=== PATIENT | female | born 1960 | race Caucasian/White ===

== ENCOUNTER 2017-03-22 12:11 | Day surgery (SDC) | payer OTHER ==
[~2017-03-22] VITALS: Ht 162.6 cm; Wt 64.4 kg
[2017-03-22 13:44] VITALS: Ht 162.6 cm; Wt 64.4 kg
[2017-03-22 14:33] VITALS: BP 119/66; PULSE 79; RESP 11
[2017-03-22] MEDS ORDERED: MIDAZOLAM 1 MG/ML 2 ML INJ ONE ×2 (14:57)
[2017-03-22] MEDS ORDERED: FENTAnyl 50 MCG/ML VIAL ONE (14:57)
[2017-03-22 15:20] VITALS: BP 133/84; PULSE 62; RESP 12
[2017-03-22 15:30] VITALS: BP 124/79; PULSE 66; RESP 12
--- NOTE | 2017-04-18 06:43 | GILP ---
DATE OF PROCEDURE: PROCEDURE PERFORMED: Colonoscopy. SURGEON: Paulina Navarro MD PREOPERATIVE DIAGNOSIS: Screening colonoscopy. POSTOPERATIVE DIAGNOSES: Colonoscopy all the way to the cecum. Internal hemorrhoids. No colon neoplasm was identified. INDICATION: The patient is a 56-year-old female patient who was scheduled for screening colonoscopy. The procedure and possible complications were well explained to the patient. The patient understood and consented to the procedure. DESCRIPTION OF PROCEDURE: The colonoscope was carefully introduced in the rectum, and under direct vision, it was advanced all the way to the cecum. FINDINGS: The patient had internal hemorrhoids. No colon neoplasm was identified. The patient tolerated the procedure very well. There was no complication from the procedure. At the end of procedure she was awake, with stable vital signs and she was discharged to the care of her family. IMPRESSION: Colonoscopy all the way to cecum. Internal hemorrhoids. No colon neoplasm was identified. PLAN: Screening colonoscopy in 10 years. Dictated By: MD JENNA Guillory/stephaniet/bjc /Document#: [id number]
== END 2017-03-22 17:28 | disposition home or self-care (01) ==
LOC: GIL 12:11
PROVIDERS: ATTEND Internal Medicine Gastroenterology
DX: Z12.11 Encounter for screening for malignant neoplasm of colon (principal); K64.8 Other hemorrhoids
CPT/HCPCS: 45378; J2250; J3010

== ENCOUNTER 2017-10-16 20:21 | Emergency (ER) | END 2017-10-17 00:55 | disposition home or self-care (01) ==

== ENCOUNTER 2017-10-19 05:20 | Emergency (ER) | END 2017-10-19 06:10 | disposition home or self-care (01) ==

== ENCOUNTER 2018-12-22 11:14 | Emergency (ER) | payer OTHER ==
[~2018-12-22] VITALS: Ht 162.6 cm; Wt 71.0 kg
[~2018-12-22 11:14] MED LIST: CEPH-443 PO; IBUP-1542 PO; SULF1TAB31 PO
[2018-12-22 11:35] VITALS: Ht 162.6 cm; Wt 71.0 kg
[2018-12-22] MEDS ORDERED: ONDANSETRON 4 MG INJ IV STA (12:08)
[2018-12-22] MEDS ORDERED: morphine 4 MG/ML VIAL IV STA (12:08)
[2018-12-22] MEDS ORDERED: SOD CHLORIDE 0.9% 1,000 ML IV STA (12:08)
[2018-12-22] MEDS ORDERED: metFORMIN 500 MG TAB PO ONE (14:30)
[2018-12-22] MEDS ORDERED: clonAZEPAM 0.5 MG TAB PO ONE (14:30)
[2018-12-22] MEDS ORDERED: LIDOCAINE/MYLANTA 40 ML BTL PO STA (14:38)
[2018-12-22] MEDS ORDERED: BELLADONNA/PHENOBARBITAL TAB PO STA (14:38)
--- NOTE | 2018-12-22 14:46 | ERD ---
ER Documentation Chief Complaint Chief Complaint pt is bib self with c/o right sided abd pain since last night HPI This is a very pleasant 58-year-old female presents to the emergency department complaining of abdominal pain. She indicates the pain began in the epigastric region and radiated to her right upper quadrant. She stated the pain had been intermittent since yesterday evening roughly 12 hours prior to arrival. She den ied any radiation of pain to her lower abdomen or back. She had no fevers or shaking or chills. She states that food exacerbated her symptoms therefore she states she has not eaten anything for the past several hours. She denies any chest pain or pressure and no shortness of breath. The patient has never had any similar episodes of pain. She did not take any analgesic medicine prior to arrival. She states the pain is a sharp shooting pain. ROS All systems reviewed and are negative except as per history of present illness. Medications Home Meds Active Scripts Famotidine* (Pepcid*) 20 Mg Tablet, 20 MG PO BID for 8 Days, TAB Prov:HI BLISS MD 12/22/18 Ondansetron (Ondansetron Odt) 4 Mg Tab.rapdis, 4 MG PO Q6H PRN for NAUSEA AND/OR VOMITING, #10 TAB Prov:HI BLISS MD 12/22/18 Sucralfate* (Carafate*) 1 Gm Tab, 1 GM PO QID, #30 TAB Prov:HI BLISS MD 12/22/18 Discontinued Reported Medications [none] No Conflict Check 03/22/17 Discontinued Scripts Cephalexin* (Keflex*) 500 Mg Capsule, 500 MG PO QID for 5 Days, CAP Prov:BARRETT GONSALEZ NP 11/01/17 Sulfamethoxazole/Trimethoprim* (Bactrim Ds* Tablet) 1 Each Tablet, 1 TAB PO BID, #14 TAB Prov:TIFFANIE NICHOLSON PA-C 10/19/17 Cephalexin* (Keflex*) 500 Mg Capsule, 500 MG PO QID for 5 Days, CAP Prov:TIFFANIE NICHOLSON PA-C 10/19/17 Ibuprofen* (Motrin*) 600 Mg Tab, 600 MG PO Q6H PRN for PAIN AND OR ELEVATED TEMP, #30 TAB Prov:NIDIA ELAINE NP 10/17/17 Allergies Allergies: Coded Allergies: No Known Allergy (Unverified , 12/22/18) PMhx/Soc History of Surgery: No Anesthesia Reaction: No Hx Neurological Disorder: No Hx Respiratory Disorders: No Hx Cardiac Disorders: No Hx Psychiatric Problems: No Hx Miscellaneous Medical Probl: No Hx Alcohol Use: No Hx Substance Use: No Hx Tobacco Use: No Smoking Status: Never smoker Physical Exam Vitals Vital Signs Date Temp Pulse Resp B/P (MAP) Pulse Ox O2 O2 Flow FiO2 Time Delivery Rate 12/22/18 99.0 68 16 133/65 98 11:35 (87) Physical Exam Constitutional:Well-developed. Well-nourished. HEENT:Normocephalic. Atraumatic.Pupils were equal round reactive to light. Moist mucous membranes.No tonsillar exudates. Neck: No nuchal rigidity. No lymphadenopathy. No posterior cervical spine tenderness or step-offs. Respiratory: Not using accessory muscles of respiration.Lungs were clear to auscultation bilaterally. No rhonchi. No rales. No wheezing. Cardiovascular: Sinus bradycardia with regular rhythm.No murmurs. No rubs were appreciated.S1, S2 normal. Distal pulses are palpable 2+ bilaterally. GI: Abdomen was soft. Tenderness in the epigastric region and right upper quadrant negative Cooper sign. Patient had no tenderness in the right lower quadrant over McBurney's point psoas sign was negative and obturator sign was negative. Non Distended. No pulsatile abdominal masses or bruits. No rebound. No guarding. Bowel sounds were present and normal. Muscle skeletal: Full range of motion of both the upper and lower extremities bilaterally.Normal muscle tone.No assymetrical calf tenderness or swelling. Skin: No petechia, no purpura. No lesions on the palms or the soles of the feet. No maculopapular rash. NEURO: Patient was alert, awake, orientated x3.No facial droop. Gait observed a nd normal with no ataxia.Speech had regular rate and rhythm. No focal neurological deficits. Result Diagram: 12/22/18 1156 12/22/18 1156 Results 24 hrs Laboratory Tests Test 12/22/18 11:56 White Blood Count 7.8 10^3/ul Red Blood Count 4.40 10^6/ul Hemoglobin 13.4 g/dl Hematocrit 41.0 % Mean Corpuscular Volume 93.2 fl Mean Corpuscular Hemoglobin 30.5 pg Mean Corpuscular Hemoglobin Concent 32.7 g/dl Red Cell Distribution Width 12.8 % Platelet Count 246 10^3/UL Mean Platelet Volume 11.4 fl Immature Granulocytes % 0.300 % Neutrophils % 48.1 % Lymphocytes % 39.6 % Monocytes % 8.8 % Eosinophils % 2.4 % Basophils % 0.8 % Nucleated Red Blood Cells % 0.0 /100WBC Immature Granulocytes # 0.020 10^3/ul Neutrophils # 3.8 10^3/ul Lymphocytes # 3.1 10^3/ul Monocytes # 0.7 10^3/ul Eosinophils # 0.2 10^3/ul Basophils # 0.1 10^3/ul Nucleated Red Blood Cells # 0.0 10^3/ul Prothrombin Time 12.0 Sec Prothrombin Time Ratio 0.9 INR International Normalized Ratio 0.88 Activated Partial Thromboplast Time 30.2 Sec Sodium Level 144 mmol/L Potassium Level 3.9 mmol/L Chloride Level 107 mmol/L Carbon Dioxide Level 29 mmol/L Anion Gap 8 Blood Urea Nitrogen 15 mg/dl Creatinine 0.57 mg/dl Est Glomerular Filtrat Rate mL/min > 60 mL/min Glucose Level 92 mg/dl Calcium Level 10.0 mg/dl Total Bilirubin 0.4 mg/dl Direct Bilirubin 0.00 mg/dl Indirect Bilirubin 0.4 mg/dl Aspartate Amino Transf (AST/SGOT) 22 IU/L Alanine Aminotransferase (ALT/SGPT) 17 IU/L Alkaline Phosphatase 96 IU/L Troponin I < 0.012 ng/ml Total Protein 8.9 g/dl Albumin 4.6 g/dl Globulin 4.30 g/dl Albumin/Globulin Ratio 1.06 Amylase Level 84 U/L Lipase 71 U/L Current Medications Medications Dose Sig/Cristian Start Time Status Last (Trade) Ordered Route PRN Stop Time Admin Dose Reason Admin Sodium 1,000 ml @ Q1H STAT 12/22/18 DC 12/22/18 Chloride 1,000 mls/hr IV 12:08 12:35 12/22/18 13:07 Morphine 4 mg ONCE STAT 12/22/18 DC 12/22/18 Sulfate IV 12:08 12:35 (morphine) 12/22/18 12:10 Ondansetron 4 mg ONCE STAT 12/22/18 DC 12/22/18 HCl (Zofran IV 12:08 12:35 Inj) 12/22/18 12:10 Metformin 500 mg ONCE ONCE 12/22/18 DC HCl PO 14:30 (Glucophage) 12/22/18 14:37 Diagnostic 1 ea AC MEALS AND 12/22/18 DC Test (Pha) BEDTIME XX 17:30 (Accu-Chek) 12/22/18 17:30 Clonazepam 1 mg ONCE ONCE 12/22/18 DC (Klonopin) PO 14:30 12/22/18 14:37 40 ml ONCE STAT 12/22/18 DC Miscellaneous PO 14:38 Medication 12/22/18 14:40 (Gi Cocktail (2)) Belladonna/ 2 tab ONCE STAT 12/22/18 DC Phenobarbital PO 14:38 () 12/22/18 14:40 Famotidine 20 mg ONCE ONCE 12/22/18 DC 12/22/18 (Pepcid Iv) IV 15:00 15:13 12/22/18 15:01 Procedures/MDM The patient presented to the emergency department with epigastric pain. My differential diagnosis included but was not limited to abdominal aortic an eurysm, choledocholithiasis, gallstone ileus, renal colic, pyelonephritis, pancreatitis, peptic ulcer disease, atypical myocardical infarction, mesenteric ischemia, GERD, pulmonary infarction. The patient was placed on a secured entrance monitor, continuous pulse oximetry and IV access was established by nursing staff. An EKG was obtained to rule out myocardial ischemia. There was no elevation of LFTs to suggest ductal obstruction, cholangitis, cholecystiitis or hepatitis. 12 Lead EKG tracing ordered and reviewed by myself showed: Sinus bradycardia 58 bpm and no arrhythmia. CO interval normal. QRS duration normal. No ST segment elevation No ST segment depression. No changes consistent with acute ischemia. The ultrasound of the gallbladder showed no cholelithiasis and CBD was within normal limits. The patient had no severe electrolyte abnormalities. The patient had no leukocytosis. The patient received intravenous morphine and Zofran in the emergency department. Indicates the patient did not have an exact etiology into her epigastric pain but she would benefit from an outpatient upper endoscopy. She was also instructed to return to the emergency department for symptoms were to worsen. Clinically the patient did not have any physical exam findings to suggest appendicitis and therefore did not obtain a CT scan of her abdomen at this time. The patient was discharged home in fair condition. They were instructed to return to the emergency department at any time if there was any worsening of their condition. The patient stated they would follow up with their PCP in the next 24-48 hours to initiate a suitable medication regimen under the care of their PCP as well as to allow their PCP to monitor any drug reactions. The patient was discharged home with prescriptions after they gave informed consent to the new medication. They were also fully informed by myself on the adverse effects and adverse drug interactions in order to provide adequate safeguards to prevent possible adverse reactions to medications. Departure Diagnosis: Primary Impression: Epigastric pain Condition: HI Sam MD Dec 22, 2018 14:46
[2018-12-22] MEDS ORDERED: FAMO-96 PO (14:50)
[2018-12-22] MEDS ORDERED: ONDA4TAB14 PO (14:50)
[2018-12-22] MEDS ORDERED: SUCR1TAB56 PO (14:50)
[2018-12-22] MEDS ORDERED: FAMOTIDINE 20 MG INJ IV ONE (15:00)
[2018-12-22 15:48] VITALS: BP 120/73; PULSE 87; RESP 20
[2018-12-22] MEDS ORDERED: ACCU-CHEK XX SCH (17:30)
== END 2018-12-22 16:02 | disposition home or self-care (01) ==
LOC: E/R 11:14
DX: R10.13 Epigastric pain (principal)
CPT/HCPCS: 76705; 80053; 82150; 83690; 84484; 85025; 85610; 85730; 93005; 96374; 96375; J2270; J2405; J7030; Z7502; Z7610

== ENCOUNTER 2018-12-29 12:38 | Emergency (ER) | payer OTHER ==
[~2018-12-29] VITALS: Wt 89.0 kg
[~2018-12-29 12:38] MED LIST changes: -CEPH-443 PO; +FAMO-96 PO; -IBUP-1542 PO; +ONDA4TAB14 PO; +SUCR1TAB56 PO; -SULF1TAB31 PO
[2018-12-29 12:48] VITALS: BP 139/82; PULSE 80; RESP 18
--- NOTE | 2018-12-29 13:20 | ERD ---
ER Documentation Chief Complaint Chief Complaint right side ap x1 week, seen here a week ago with same HPI This is a 58-year-old female who is here for right back and abdominal pain that has been there for a week. She was here last week and was seen by the ER doctor and discharged home. She said that after she was seen here a couple days later she developed this red rash to her right flank that radiated around to the right abdomen. No fever no nausea vomiting the pain is a burning sensation that is worse at night. ROS All systems reviewed and are negative except as per history of present illness. Medications Home Meds Active Scripts Famotidine* (Pepcid*) 20 Mg Tablet, 20 MG PO BID for 8 Days, TAB Prov:HI BLISS MD 12/22/18 Ondansetron (Ondansetron Odt) 4 Mg Tab.rapdis, 4 MG PO Q6H PRN for NAUSEA AND/OR VOMITING, #10 TAB Prov:HI BLISS MD 12/22/18 Sucralfate* (Carafate*) 1 Gm Tab, 1 GM PO QID, #30 TAB Prov:HI BLISS MD 12/22/18 Discontinued Reported Medications [none] No Conflict Check 03/22/17 Discontinued Scripts Cephalexin* (Keflex*) 500 Mg Capsule, 500 MG PO QID for 5 Days, CAP Prov:BARRETT GONSALEZ NP 11/01/17 Sulfamethoxazole/Trimethoprim* (Bactrim Ds* Tablet) 1 Each Tablet, 1 TAB PO BID, #14 TAB Prov:TIFFANIE NICHOLSON PA-C 10/19/17 Cephalexin* (Keflex*) 500 Mg Capsule, 500 MG PO QID for 5 Days, CAP Prov:TIFFANIE NICHOLSON PA-C 10/19/17 Ibuprofen* (Motrin*) 600 Mg Tab, 600 MG PO Q6H PRN for PAIN AND OR ELEVATED TEMP, #30 TAB Prov:NIDIA ELAINE NP 10/17/17 Allergies Allergies: Coded Allergies: No Known Allergy (Unverified , 12/22/18) PMhx/Soc History of Surgery: No Anesthesia Reaction: No Hx Neurological Disorder: No Hx Respiratory Disorders: No Hx Cardiac Disorders: No Hx Psychiatric Problems: No Hx Miscellaneous Medical Probl: No Hx Alcohol Use: No Hx Substance Use: No Hx Tobacco Use: No FmHx Family History: No coronary disease Physical Exam Vitals Vital Signs Date Temp Pulse Resp B/P (MAP) Pulse Ox O2 O2 Flow FiO2 Time Delivery Rate 12/29/18 99.7 80 18 139/82 99 12:48 (101) Physical Exam Const: Well-developed, well-nourished Head: Atraumatic, normocephalic Eyes: Normal Conjunctiva, PERRLA, EOMI, normal sclera, no nystagmus ENT: Normal External Ears, Nose and Mouth, moist mucus membranes. Neck: Full range of motion. No meningismus, no lymphadenopathy. Resp: Clear to auscultation bilaterally, no wheezing, rhonchi, rales Cardio: Regular rate and rhythm, no murmurs, S1 S2 present Abd: Soft, non tender x 4, non distended. Normal bowel sounds, no guarding or rebound, no pulsitile abdominal masses or bruits Skin: Patient has a vesicular rash on the right back radiating around the right flank to the right mid abdomen following dermatome 8] Back: No midline or flank tenderness Ext: No cyanosis, or edema, FROM x 4, normal inspection, neurovascularly intact x 4 Neur: Awake and alert, STR 5/5 x 4, sensation intact x 4, no focal findings, cerebellum intact Psych: Normal Mood and Affect Procedures/MDM This patient has evidence of shingles. Will discharge home with prednisone, acyclovir and [place] Departure Diagnosis: Primary Impression: Herpes zoster Herpes zoster complications: without complications Qualified Codes: B02.9 - Zoster without complications Condition: Stable YANCY MOROCHO DO Dec 29, 2018 13:20
[2018-12-29] MEDS ORDERED: HYDR-4011 PO (13:23)
[2018-12-29] MEDS ORDERED: MED4DP PO (13:23)
[2018-12-29] MEDS ORDERED: VALA10004 PO (13:23)
== END 2018-12-29 13:53 | disposition home or self-care (01) ==
LOC: E/R 12:38
DX: B02.9 Zoster without complications (principal)
CPT/HCPCS: 99283